=== PATIENT | male | born 1970 | race African-American/Black ===

== ENCOUNTER 2017-07-23 05:30 | Emergency (ER) | payer MEDICAID ==
[2017-07-23 05:37] VITALS: BP 174/120
--- NOTE | 2017-07-23 05:47 | EDPHY ---
H & P Stated Complaint: R leg pain Time Seen by Provider: 07/23/17 05:38 HPI/ROS: Chief Complaint: Right foot pain HPI: 46-year-old male has pain at the base of his right big toe. Pain started this morning. He has noticed some swelling. No prior injuries. Does not have a history of similar episodes in the past. He has a history of hypertension but only intermittently takes medications. No history of kidney disease. No fevers or chills. No nausea or vomiting. It is painful when he walks. ROS: 10 point Review of Systems is negative except as noted in the HPI. PMH: Hypertension Social History: Positive smoking, no alcohol Family History: non-contributory Physical Exam: Gen: Awake, Alert, No Distress Ext: Right leg: No calf or thigh tenderness. Full range of motion was ankle knee and hip without pain. Patient has swelling at the 1st MCP joint of his right foot. It is not erythematous. Is not warm to touch. It is tender. He he has decreased range of motion of his MCP secondary to pain. There are no plantar lesions or puncture wounds. Skin: no rash Neuro: CN II-XII intact, Sensation grossly intact, Strength 5/5 in bilateral upper and lower extremities - Personal History Current Tetanus/Diphtheria Vaccine: Unsure - Medical/Surgical History Hx Asthma: No Hx Chronic Respiratory Disease: No Hx Diabetes: No Hx Cardiac Disease: No Hx Renal Disease: No Hx Cirrhosis: No Hx Alcoholism: No Hx HIV/AIDS: No Hx Splenectomy or Spleen Trauma: No Other PMH: anxiety, HTN - Social History Smoking Status: Current every day smoker Constitutional: Initial Vital Signs Temperature (C) 36.7 C 07/23/17 05:31 Heart Rate 103 H 07/23/17 05:31 Respiratory Rate 18 07/23/17 05:31 Blood Pressure 174/120 H 07/23/17 05:31 O2 Sat (%) 96 07/23/17 05:31 O2 Delivery Mode Room Air Allergies/Adverse Reactions: No Known Allergies Allergy (Unverified 07/23/17 05:35) Home Medications: Medication Instructions Recorded Colchicine 0.6 mg PO BID #30 capsule 07/23/17 Indomethacin [Indocin 25 mg (*)] 50 mg PO TID #30 cap 07/23/17 Lisinopril 07/23/17 Medical Decision Making ED Course/Re-evaluation: Patient presenting with symptoms consistent with gout. Will start him on indomethacin and colchicine. He has [facility] insurance. He will follow up with his [facility] doctor in 3-4 days for further evaluation. Departure - Departure Disposition: Home, Routine, Self-Care Clinical Impression: Gout Condition: Good Instructions: Gout (ED) Additional Instructions: Take the indomethacin and colchicine as prescribed. Follow up with your doctor at [facility] in 3-4 days for further evaluation. Return to the emergency department for worsening pain, redness, swelling, fevers , chills, or any other concerns. Referrals: [facility] ,. [[facility] Groups for Call Sched] - As per Instructions Prescriptions: Colchicine 0.6 mg PO BID #30 capsule Indomethacin [Indocin 25 mg (*)] 50 mg PO TID #30 cap
[2017-07-23] MEDS ORDERED: INDOMETHACIN 25 MG CAP PO ONE (05:52)
[2017-07-23] MEDS ORDERED: COLCHICINE 0.6 MG CAP/TAB PO ONE (05:52)
== END 2017-07-23 06:52 | disposition home or self-care (01) ==
DX: M10.9 Gout, unspecified (principal); I10 Essential (primary) hypertension; F17.200 Nicotine dependence, unspecified, uncomplicated

== ENCOUNTER 2018-01-08 19:51 | Inpatient (IN) | payer MEDICAID ==
[~2018-01-08 19:51] MED LIST: amLODIPine BESYLATE 5 MG TAB PO SCH
[2018-01-08] MEDS ORDERED: amLODIPine BESYLATE 5 MG TAB ONE (20:03)
[2018-01-08] MEDS ORDERED: amLODIPine BESYLATE 5 MG TAB PO ONE (20:03)
--- NOTE | 2018-01-08 20:04 | EDPHY ---
H & P Stated Complaint: HTN Source: Patient Exam Limitations: No limitations - Personal History Current Tetanus/Diphtheria Vaccine: Unsure Current Tetanus Diphtheria and Acellular Pertussis (TDAP): Unsure - Medical/Surgical History Hx Asthma: No Hx Chronic Respiratory Disease: No Hx Diabetes: No Hx Cardiac Disease: No Hx Renal Disease: No Hx Cirrhosis: No Hx Alcoholism: No Hx HIV/AIDS: No Hx Splenectomy or Spleen Trauma: No Other PMH: anxiety, HTN - Social History Smoking Status: Current every day smoker Time Seen by Provider: 01/08/18 20:03 HPI/ROS: CHIEF COMPLAINT: Hypertension HISTORY OF PRESENT ILLNESS: The patient presents to the ED with complaints of hypertension that was [facility]. The patient reportedly is homeless and has been struggling with some situational anxiety. The patient did take some propanolol and Klonopin earlier today. The patient denies any chest pain or shortness of breath. The patient reports he has been struggling with a headache for the past several weeks. He denies any focal numbness or weakness. The patient reports he was at the [facility] yesterday for evaluation of similar symptoms. During that time had a CT scan of the brain which was normal and discharged home. The patient reports he has had intermittent follow up with his primary care provider. He is uncertain of all the medications he is supposed to take for hypertension. REVIEW OF SYSTEMS: A comprehensive 10 point review of systems is otherwise negative aside from elements mentioned in the history of present illness. (Joe Guo) - Physical Exam Exam: General Appearance: Alert, no distress Eyes: Pupils equal and round no pallor or injection ENT, Mouth: Mucous membranes moist Respiratory: There are no retractions, lungs are clear to auscultation Cardiovascular: Regular rate and rhythm Gastrointestinal: Abdomen is soft and nontender, no masses, bowel sounds normal Neurological: A&O, normal motor function, normal sensory exam, normal cranial nerves Skin: Warm and dry, no rashes Musculoskeletal: Neck is supple nontender Extremities: symmetrical, full range of motion Psychiatric: Patient is oriented X 3, there is no agitation (Joe Guo) Constitutional: Initial Vital Signs Heart Rate 90 01/08/18 19:55 Respiratory Rate 16 01/08/18 19:55 Blood Pressure 224/144 H 01/08/18 19:55 O2 Sat (%) 97 01/08/18 19:55 O2 Delivery Mode Room Air Allergies/Adverse Reactions: No Known Allergies Allergy (Unverified 07/23/17 05:35) Home Medications: Medication Instructions Recorded Butalbital/Acetaminophen/Caff 1 tab PO TID PRN 01/09/18 Propranolol HCl [Propranolol HCl 60 mg PO DAILY 01/09/18 ER] Ranitidine HCl 150 mg PO BID 01/09/18 Sertraline HCl [Zoloft 50mg (*)] 100 mg PO DAILY 01/09/18 clonazePAM [Clonazepam] 0.5 mg PO BID 01/09/18 Medical Decision Making ED Course/Re-evaluation: Patient presents to the ED with significant hypertension without evidence of end -organ dysfunction. The patient was placed on a teletypesetter monitor. The patient was given 5 mg of Norvasc orally at 8:00 p.m.. I did review the results of the patient's workup yesterday the [facility]. At that point time he was hypertensive with a blood pressure of 220/ 120. He had an unremarkable CT scan of the brain. Patient does admit that he is under some stress and anxiety which is contributing to his hypertension. Patient was given 1 mg of IV Ativan at 9:00 p.m.. Patient will be turned over to Dr. Issa at shift change to assess response to Norvasc. If the patient's blood pressure improves I do feel he can be discharged home and [facility] He will be given a prescription for Norvasc. (Joe Guo) 2253: Patient re-evaluated continues to be hypertensive. This is despite Ativan, Norvasc. Given how hypertensive the patient is with a diastolic over 120 plan will be for hospital admission observation tonight. Patient this time is no follow-up care and does not have an outpatient blood pressure regimen. Plan for observation overnight for hypertension. Additionally this patient has very low potassium of 2.8. Oral potassium is been ordered. 2312: Spoke with Hospalist service Dr. Conroy, agrees to admit. Plan for obs overnight, HTN, low K. Homeless, limited resources. (Liam Issa) Differential Diagnosis: Differential diagnosis considered includes chronic hypertension, hypertensive emergency, intracranial hemorrhage, metabolic derangement, renal failure (Joe Guo) - Data Points Laboratory Results: Laboratory Results 01/08/18 19:50 01/08/18 19:50 Medications Given: Acetaminophen (Tylenol) 650 mg PO Q4HRS PRN PRN Reason: Pain, Mild/Fever, Can Take PO Stop: 07/07/18 23:11 Last Admin: 01/09/18 11:55 Dose: 650 mg Amlodipine Besylate (Norvasc) 5 mg PO DAILY [facility] Stop: 07/08/18 08:59 Last Admin: 01/09/18 08:35 Dose: 5 mg Enoxaparin Sodium (Lovenox) 40 mg SC DAILY [facility] Stop: 07/08/18 08:59 Last Admin: 01/09/18 08:36 Dose: 40 mg Famotidine (Pepcid) 20 mg PO BID [facility] Stop: 07/08/18 10:29 Last Admin: 01/09/18 10:45 Dose: 20 mg Lisinopril (Zestril) 10 mg PO DAILY [facility] Stop: 07/08/18 08:59 Last Admin: 01/09/18 08:36 Dose: 10 mg Propranolol HCl (Inderal La) 60 mg PO DAILY [facility] Stop: 07/08/18 10:14 Last Admin: 01/09/18 10:42 Dose: 60 mg Sertraline HCl (Zoloft) 100 mg PO DAILY [facility] Stop: 07/08/18 10:14 Last Admin: 01/09/18 10:42 Dose: 100 mg Discontinued Medications Amlodipine Besylate (Norvasc) 5 mg PO EDNOW ONE Stop: 01/08/18 20:04 Last Admin: 01/08/18 20:06 Dose: 5 mg Lorazepam (Ativan Injection) 1 mg IVP EDNOW ONE Stop: 01/08/18 20:50 Last Admin: 01/08/18 20:58 Dose: 1 mg Potassium Chloride (Klor Packets) 40 meq PO EDNOW ONE Stop: 01/08/18 21:41 Last Admin: 01/08/18 21:47 Dose: 40 meq Potassium Chloride (Klor-Con) 10 - 40 meq PO ONCE ONE PRN Reason: Protocol Stop: 01/09/18 10:17 Last Admin: 01/09/18 10:42 Dose: 40 meq Departure - Departure Disposition: [facility] Clinical Impression: Hypokalemia Hypertension Qualifiers: Hypertension type: unspecified Qualified Code(s): I10 - Essential (primary) hypertension Condition: Good
[2018-01-08 20:08] LABS: PLATELET COUNT 193 10^3/uL (150-400)
[2018-01-08] MEDS ORDERED: LORazepam 2 MG/ML INJ IVP ONE (20:49)
[2018-01-08] MEDS ORDERED: POTASSIUM CL 20 MEQ PKT PO ONE (21:40)
[2018-01-08] MEDS ORDERED: ONDANSETRON 4 MG/2 ML VIAL IVP PRN (23:12)
[2018-01-08] MEDS ORDERED: ONDANSETRON DISINTEGRATING 4 MG TAB PO PRN (23:12)
--- NOTE | 2018-01-09 00:58 | PDGENHP ---
History and Physical - Chief Complaint Hypertension - History of Present Illness 47 yo M w/ hx of HTN and anxiety who presents with elevated BP. The patient was seen in [facility] ED yesterday for headache and elevated BP. There his BP was noted to be 227/143 (Records reviewed in [facility]) and a CTH revealed no acute findings. He did hit his head a few weeks prior so he was diagnosed with a concussion and discharged. He came to [facility] today to visit the crisis center for evaluation of poorly controlled anxiety. While there they noted his BP was very elevated so he was sent to [facility] ED for evaluation. SBP on arrival here was > 200. The patient continues to complain of a headache but otherwise denies symptoms. He tells me he has been prescribed medications for blood pressure but does not remember what they are and has not been taking them due to difficulty filling his prescriptions. He was given amlodipine and Ativan in the ED and his BP is now 180/150. He is being admitted for blood pressure control noting he is homeless and has no reliable follow-up available t him at this time. Case discussed with ED physician Dr. Brown; records reviewed in EMR and [facility] and summarized above. History Information - Allergies/Home Medication List Allergies/Adverse Reactions: No Known Allergies Allergy (Unverified 07/23/17 05:35) Home Medications: Lisinopril 07/23/17 [Last Taken Unknown] I have personally reviewed and updated: family history, medical history - Past Medical History hypertension - Surgical History Reports: no pertinent surgical hx - Family History Positive for: hypertension - Social History Smoking Status: Current every day smoker Review of Systems Review of Systems: ROS: 10pt was reviewed & negative except for what was stated in HPI & below Physical Exam Physical Exam: Temp Pulse Resp BP Pulse Ox 36.5 C 75 16 185/130 H 99 01/09/18 00:34 01/09/18 00:34 01/09/18 00:34 01/09/18 00:34 01/09/18 00:34 Constitutional: no apparent distress, not in pain Eyes: PERRL, EOMI Ears, Nose, Mouth, Throat: moist mucous membranes, no oral mucosal ulcers Cardiovascular: regular rate and rhythym, no murmur, rub, or gallop Respiratory: no respiratory distress, clear to auscultation Gastrointestinal: normoactive bowel sounds, soft, non-tender abdomen Skin: warm, normal color Musculoskeletal: full muscle strength, no muscle tenderness Neurologic: AAOx3, CN II-XII Intact Psychiatric: depressed, flat affect Lab Data & Imaging Review 01/08/18 19:50 01/08/18 19:50 WBC 8.04 10^3/uL (3.80-9.50) 01/08/18 19:50 RBC 5.26 10^6/uL (4.40-6.38) 01/08/18 19:50 Hgb 15.8 g/dL (13.7-17.5) 01/08/18 19:50 Hct 44.7 % (40.0-51.0) 01/08/18 19:50 MCV 85.0 fL (81.5-99.8) 01/08/18 19:50 MCH 30.0 pg (27.9-34.1) 01/08/18 19:50 MCHC 35.3 g/dL (32.4-36.7) 01/08/18 19:50 RDW 12.1 % (11.5-15.2) 01/08/18 19:50 Plt Count 193 10^3/uL (150-400) 01/08/18 19:50 MPV 10.3 fL (8.7-11.7) 01/08/18 19:50 Neut % (Auto) 65.7 % (39.3-74.2) 01/08/18 19:50 Lymph % (Auto) 23.9 % (15.0-45.0) 01/08/18 19:50 [place] % (Auto) 8.5 % (4.5-13.0) 01/08/18 19:50 Eos % (Auto) 0.6 % (0.6-7.6) 01/08/18 19:50 Baso % (Auto) 0.9 % (0.3-1.7) 01/08/18 19:50 Nucleat RBC Rel Count 0.0 % (0.0-0.2) 01/08/18 19:50 Absolute Neuts (auto) 5.29 10^3/uL (1.70-6.50) 01/08/18 19:50 Absolute Lymphs (auto) 1.92 10^3/uL (1.00-3.00) 01/08/18 19:50 Absolute Monos (auto) 0.68 10^3/uL (0.30-0.80) 01/08/18 19:50 Absolute Eos (auto) 0.05 10^3/uL (0.03-0.40) 01/08/18 19:50 Absolute Basos (auto) 0.07 10^3/uL (0.02-0.10) 01/08/18 19:50 Absolute Nucleated RBC 0.00 10^3/uL (0-0.01) 01/08/18 19:50 Immature Gran % 0.4 % (0.0-1.1) 01/08/18 19:50 Immature Gran # 0.03 10^3/uL (0.00-0.10) 01/08/18 19:50 Sodium 136 mEq/L (135-145) 01/08/18 19:50 Potassium 2.8 mEq/L (3.3-5.0) L 01/08/18 19:50 Chloride 91 mEq/L (97-110) L 01/08/18 19:50 Carbon Dioxide 35 mEq/l (22-31) H 01/08/18 19:50 Anion Gap 10 mEq/L (6-14) 01/08/18 19:50 BUN 16 mg/dL (7-23) 01/08/18 19:50 Creatinine 0.9 mg/dL (0.7-1.3) 01/08/18 19:50 Estimated GFR > 60 01/08/18 19:50 Glucose 109 mg/dL (70-100) H 01/08/18 19:50 Calcium 9.4 mg/dL (8.5-10.4) 01/08/18 19:50 Assessment & Plan Assessment: 47 yo M w/ hx of HTN presents with elevated BP in the setting of medication non- compliance. Plan: 1. Uncontrolled hypertension - In the setting of medication non-compliance complicated by homelessness and difficulty obtaining medication. BP > 220/120 on arrival. BP now 180/150 after lorazepam and amlodipine administered in the ED. Patient does not recall his medications but our records indicated he was previously on unclear doses of lisinopril and amlodipine. A two medication regimen seems appropriate noting severity of HTN. - Admit for observation - Will start amlodipine 5 mg qD and lisinopril 10 mg qD - Case management consult 2. Hypokalemia - Replete PRN Diet - Regular Code - Full Ppx - LMWH Dispo - Admit under observation status
[2018-01-09 05:32] LABS: PLATELET COUNT 180 10^3/uL (150-400)
[2018-01-09] MEDS: amLODIPine BESYLATE 5 MG TAB PO SCH (08:35)
[2018-01-09] MEDS: ENOXAPARIN 40 MG/0.4 ML SYR SC SCH (08:36)
[2018-01-09] MEDS: LISINOPRIL 10 MG TAB PO SCH (08:36)
[2018-01-09] MEDS ORDERED: PROTOCOL POTASSIUM 1 DOSE MISC PRN (10:09)
[2018-01-09] MEDS ORDERED: POTASSIUM CL 10 MEQ TAB PO ONE (10:16)
--- NOTE | 2018-01-09 10:31 | HOSPPROG ---
Hospitalist Progress Note Assessment/Plan: * HTN crisis -BP now with better control with lisinopril and norvasc added -continue home propranolol * Hypokalemia -unclear why potassium so low - denies significant Etoh -continue to replete per protocol * Anxiety -continue clonazepam prn * Unintentional weight loss - 30lbs -describes recent colonoscopy that found hemorrhoids -outpatient follow-up * Recent concussion -head CT at [facility] negative Subjective: No new complaints, headache a little better Objective: Vital Signs Temp Pulse Resp BP Pulse Ox 36.9 C 79 19 160/114 H 99 01/09/18 08:00 01/09/18 09:49 01/09/18 08:00 01/09/18 09:49 01/09/18 08:00 Laboratory Results 01/09/18 04:18 01/09/18 04:18 01/08/18 01/09/18 01/10/18 05:59 05:59 05:59 Intake Total 605 Balance 605 tele reviewed - NSR - Physical Exam Constitutional: no apparent distress, appears nourished, not in pain Cardiovascular: regular rate and rhythym, no murmur, rub, or gallop Respiratory: no respiratory distress, no rales or rhonchi, clear to auscultation Gastrointestinal: normoactive bowel sounds, soft, non-tender abdomen, no palpable masses Skin: no rashes or abrasions, no fluctuance, no induration Neurologic: AAOx3, sensation intact bilaterally Psychiatric: interacting appropriately, not anxious, not encephalopathic, thought process linear ICD10 Worksheet Patient Problems: Problems Problem Status Onset Hypertension Acute Hypokalemia Acute
[2018-01-09] MEDS: SERTRALINE HCL 50 MG TAB PO SCH (10:42)
[2018-01-09] MEDS: PROPRANOLOL SR 60 MG CAP PO SCH (10:42)
[2018-01-09] MEDS: FAMOTIDINE 20 MG TAB PO SCH ×2 (10:45→19:57)
[2018-01-09] MEDS: ACETAMINOPHEN 325 MG TAB PO PRN ×2 (11:55→19:56)
--- NOTE | 2018-01-09 13:57 | PDMN ---
Medical Necessity Medical necessity: Change to IP, as of 01/09/18, per MD & MCG [id number]; los >2 mn for ongoing management of hypertensive emergency w/hypokalemia (K+ 2.8); requiring further monitoring, follow-up labs & med management; hx recent concussion, unintentional wt loss
--- NOTE | 2018-01-09 15:43 | ASMTCMCOM ---
CM Note CM Note Notes: Pts case discussed in tx rounds. Pt is a 47 y/o man admitted for htn and low k. CM attempted to meet w/ pt on multiple occasions. CM was not able to wake pt. Pt is homeless w/ a hx of anxiety. Needs are TBD at this time. CM to follow. Plan: TBD Date Signed: 01/09/2018 03:34 PM Electronically Signed By:RONNIE Coy
[2018-01-09] MEDS ORDERED: clonazePAM 0.5 MG TAB PO PRN (21:00)
[2018-01-10] MEDS ORDERED: POTASSIUM CL 10 MEQ TAB PO ONE (07:33)
[2018-01-10 07:51] VITALS: BP 160/110
[2018-01-10] MEDS: SERTRALINE HCL 50 MG TAB PO SCH (09:36)
[2018-01-10] MEDS: LISINOPRIL 10 MG TAB PO SCH (09:36)
[2018-01-10] MEDS: PROPRANOLOL SR 60 MG CAP PO SCH (09:37)
[2018-01-10] MEDS: ENOXAPARIN 40 MG/0.4 ML SYR SC SCH (09:38)
[2018-01-10] MEDS: amLODIPine BESYLATE 5 MG TAB PO SCH (09:38)
[2018-01-10] MEDS: FAMOTIDINE 20 MG TAB PO SCH (09:40)
--- NOTE | 2018-01-10 12:10 | ASMTDCNOTE ---
Case Management Discharge Discharge Order Complete? Answers: Yes Patient to Obtain Answers: Independently Medications Transportation Arranged Answers: Bus Tokens Discharge Comments Notes: Patient discharged independently. Is not homeless (was noted incorrectly). Bus pass given. No CM needs. Date Signed: 01/10/2018 12:09 PM Electronically Signed By:Chandni Farias RN
--- NOTE | 2018-01-11 03:28 | GDS ---
DISCHARGE DIAGNOSES: 1. Hypertensive crisis. 2. Hypokalemia. 3. Anxiety. HISTORY OF PRESENT ILLNESS: The patient is a 47-year-old male who presented in hypertensive crisis. He had severe anxiety and headache and presented to Care and was found to have a systolic blood pres sure as high as 224/144. He does have a known history of hypertension; although, has been having a t ough time with compliance with his medications due to recently undergoing a separation from his commo n-law . He is moving out of their home. He has a high degree of stress. He was admitted to the hospital and lisinopril and Norvasc were added to his blood pressure regimen. He is already on prop ranolol. He was educated regarding consistency of med administration [facility]. He had hypokalemia on presentation with a potassium of 2.8, and this was repleted per protoc ol with improvement. DISCHARGE MEDICATIONS: Please see computerized record for full detailed list. NEW MEDICATIONS: 1. Norvasc 5 mg p.o. daily. 2. Lisinopril 10 mg p.o. daily. 3. He will continue on his propranolol ER 60 mg p.o. daily. ADDITIONAL DISCHARGE INSTRUCTIONS: He already has appointment with primary care set up within 1 week through [facility], and he will continue to establish outpatient care. Greater than 30 minutes' time was spent arranging this discharge. Patient seen and examined by me on day of discharge. /[id number]/MODL
== END 2018-01-10 12:00 | disposition home or self-care (01) | DRG 199 ==
LOC: EDUNIT# → F2W 01-09 00:14 → OBSVTOIN 01-09 10:26
PROVIDERS: ADMIT Student in an Organized Health Care Education/Training Program; ATTEND Student in an Organized Health Care Education/Training Program
DX: I16.9 Hypertensive crisis, unspecified (principal); E87.6 Hypokalemia; F41.9 Anxiety disorder, unspecified; T46.5X6A Underdosing of other antihypertensive drugs, initial encounter; Z72.0 Tobacco use; Z91.138 Patient's unintentional underdosing of medication regimen for other reason
CPT/HCPCS: 96374; G0378; J1650; J2060